=== PATIENT | male | born 1975 ===

== ENCOUNTER 2017-05-30 10:01 | Day surgery (SDC) | payer BC ==
[2017-05-27 12:31] LABS: Basophils # (auto) 0 uL; Basophils % (auto) 0.6 % (0.0-2.0); Eosinophils # (auto) 0.1 uL; Eosinophils % (auto) 3.6 % (0.0-7.0); Hematocrit 42.3 % (41.0-53.0); Hemoglobin 14.4 g/dL (13.5-17.5); Lymphocytes # (auto) 1.5 uL; Lymphocytes % (auto) 40.7 % (10.0-50.0); Mean Corpuscular Hemoglobin 31.2 pg (28.0-32.0); Mean Corpuscular Volume 91.8 fL (80.0-100.0); Monocytes # (auto) 0.5 uL; Neutrophils # (auto) 1.6 uL; Neutrophils % (auto) 43.1 % (37.0-80.0); Nucleated Red Blood Cells % 0.3 %; Platelet Count (auto) 170 10^3/uL (140-450); Red Blood Cells 4.61 10^6/uL (4.5-5.90); Red Cell Distribution Width 12.3 % (11.8-14.3); Urine Bacteria NONE SEEN /hpf (None Seen); Urine Blood Negative /uL (Negative); Urine Mucus FEW (None Seen); Urine Specific Gravity 1.023 (1.001-1.035); Urine WBC <1 /hpf (0 - 3); White Blood Cell 3.8 10^3/uL (4.4-10.8)
[2017-05-27 12:41] LABS: INR 1.02 (0.9-1.15); Partial Thromboplastin Time 25.5 sec (22.64-33.71); Prothrombin Time 11.1 sec (9.37-12.3)
[2017-05-27 12:46] LABS: BUN/Creatinine Ratio 12.9; Bilirubin, Total 0.3 mg/dL (0.2-1.0); Calcium 8.7 mg/dL (8.5-10.1); Potassium 4.1 mmol/L (3.5-5.1); Total Protein 7.8 g/dL (6.4-8.2)
[~2017-05-30] VITALS: Ht 167.6 cm; Wt 75.7 kg
[2017-05-30] MEDS ORDERED: ceFAZolin 1GM/50ML 50 ML IV ONE (11:36)
[2017-05-30] MEDS ORDERED: fentaNYL CITRATE 100 MCG/2 ML VL ONE ×2 (14:48→14:54)
[2017-05-30] MEDS ORDERED: MIDAZOLAM HCL 1MG/1ML-2 ML VIAL ONE (14:49)
[2017-05-30] MEDS ORDERED: PROPOFOL 10 MG/ML 20 ML IV ONE (14:52)
[2017-05-30] MEDS ORDERED: HYOSCYAMINE SULF 0.125 MG TAB PO ONE (15:00)
[2017-05-30] MEDS ORDERED: hydrALAZINE HCL 20 MG/ML VL IV PRN (15:30)
[2017-05-30] MEDS ORDERED: ePHEDrine SULFATE 50 MG/ML AMP IV PRN (15:30)
[2017-05-30] MEDS ORDERED: ONDANSETRON HCL 4 MG/2 ML VIAL IV ONE (15:30)
[2017-05-30] MEDS ORDERED: fentaNYL CITRATE 100 MCG/2 ML VL IV ONE (16:00)
[2017-05-30 17:10] VITALS: BP 116/71
== END 2017-05-30 17:10 | disposition home or self-care (01) ==
LOC: SUR 10:01
PROVIDERS: ATTEND Anesthesiology
DX: N35.9 Urethral stricture, unspecified (principal); K21.9 Gastro-esophageal reflux disease without esophagitis; E78.5 Hyperlipidemia, unspecified; I10 Essential (primary) hypertension; E66.9 Obesity, unspecified
CPT/HCPCS: 36415; 52276; 80053; 81001; 85025; 85610; 85730; J0690; J2250; J2704; J3010; J7030

== ENCOUNTER → 2018-04-18 | Outpatient (CLI) | payer BC | END | disposition home or self-care (01) | LOC: LAB 09:48 | PROVIDERS: ATTEND Urology | DX: N39.0 Urinary tract infection, site not specified (principal) | CPT/HCPCS: 87086; 87088; 87186 ==